=== PATIENT | male | born 1995 | race Two or more races ===

== ENCOUNTER 2023-04-14 22:58 | Emergency (ER) | payer MEDICAID, OTHER ==
[~2023-04-14] VITALS: Ht 177.8 cm; Wt 90.0 kg
[2023-04-14 23:36] VITALS: BP 116/75; PULSE 99; RESP 15; TEMP 98.6; O2SAT 99
[2023-04-15] MEDS ORDERED: DOXY-448 PO (01:22)
[2023-04-15] MEDS ORDERED: IBUPROFEN 600 MG TAB PO ONE (02:15)
== END 2023-04-15 02:18 | disposition home or self-care (01) ==
LOC: EDBD 22:58 → ER 22:58
DX: K13.79 Other lesions of oral mucosa (principal); Z79.2 Long term (current) use of antibiotics